=== PATIENT | female | born 1960 | race Caucasian/White ===

== ENCOUNTER 2017-05-24 07:09 | Day surgery (SDC) | payer BC, MEDICAID ==
[~2017-05-24 07:09] MED LIST: Lactated Ringers 1,000 ML IV SCH; Sodium Chloride 0.9% 10 ML Syringe FLUSH PRN
[2017-05-24] MEDS ORDERED: Midazolam 1 MG/ML 2 ML SDV ONE ×2 (07:16→08:19)
[2017-05-24] MEDS ORDERED: fentaNYL 100 MCG/2 ML SDV ONE ×2 (07:16→08:19)
[2017-05-24] MEDS ORDERED: Propofol 200 MG/20 ML SDV ONE ×3 (07:17→08:53)
[2017-05-24] MEDS ORDERED: Lidocaine 2% 5 ML SDV ONE (08:19)
--- NOTE | 2017-05-24 08:28 | PCM.PN ---
- General Info Date of Service: 05/24/17 - Review of Systems Systems Review Comment:: 56-year-old female here for right carpal tunnel release. She is medically stable to proceed today with no significant change in her health status since her recent history and physical which is reviewed today. I have discussed the proposed operative procedure with the patient again. The site is confirmed with the patient had marked. She agrees to proceed today accepting risks. - Patient Data Vitals - most recent: Last Vital Signs Temp 97.7 F 05/24/17 07:21 Pulse 65 05/24/17 07:46 Resp 16 05/24/17 07:21 BP 103/77 05/24/17 07:46 Pulse Ox 93 L 05/24/17 07:21 Weight - most recent: 85.275 kg Med Orders - Current: Current Medications Lactated Ringer's (Ringers, Lactated) 1,000 mls @ 125 mls/hr IV ASDIRECTED CHEVY Last Admin: 05/24/17 07:43 Dose: 125 mls/hr Sodium Chloride (Saline Flush) 10 ml FLUSH ASDIRECTED PRN PRN Reason: Keep Vein Open Last Admin: 05/24/17 07:44 Dose: 10 ml Discontinued Medications Fentanyl (Sublimaze) Confirm Administered Dose 100 mcg .ROUTE .STK-MED ONE Stop: 05/24/17 07:17 Midazolam HCl (Versed 1 Mg/Ml) Confirm Administered Dose 4 mg .ROUTE .STK-MED ONE Stop: 05/24/17 07:17 Propofol (Diprivan 20 Ml) Confirm Administered Dose 200 mg .ROUTE .STK-MED ONE Stop: 05/24/17 07:18 - Problem List Review Problem List Initiated/Reviewed/Updated: Yes - My Orders Last 24 Hours: My Active Orders 05/24/17 07:00 Patient Status [ADT] Routine Peripheral IV Care [RC] . DIRECTED Verify Patient Consent Obtain [RC] ASDIRECTED Lactated Ringers [Ringers, Lactated] 1,000 ml IV ASDIRECTED Sodium Chloride 0.9% [Saline Flush] 10 ml FLUSH ASDIRECTED PRN Peripheral IV Insertion Adult [OM.PC] Routine - Assessment Assessment:: Right carpal tunnel syndrome - Plan Plan:: Right carpal tunnel release
[2017-05-24] MEDS ORDERED: Bupivacaine 0.25%/EPINEPHrine 1:200,000 30 ML SDV INFILT ONE (08:44)
--- NOTE | 2017-05-24 09:19 | PCM.OPNOTE ---
- General Post-Op/Procedure Note Date of Surgery/Procedure: 05/24/17 Operative Procedure(s): Right carpal tunnel release Findings: Thickened right transverse carpal ligament causing compression of underlying median nerve Pre Op Diagnosis: Right carpal tunnel syndrome Post-Op Diagnosis: Same Anesthesia Technique: Regional block Primary Surgeon: Mark Tavarez Pathology: none Output, Urine Amount: 0 EBL in mLs: 5 Complications: None Condition: Good Free Text/Narrative:: Intake & Output 05/23/17 05/24/17 05/24/17 22:59 06:59 14:59 Intake Total 900 Balance 900
--- NOTE | 2017-05-24 11:23 | OR ---
Date of Procedure: 05/24/2017 PREOPERATIVE DIAGNOSIS: Right carpal tunnel syndrome. POSTOPERATIVE DIAGNOSIS: Right carpal tunnel syndrome. OPERATION PERFORMED: Right carpal tunnel release. INDICATIONS FOR SURGERY: This 56-year-old female, who has been having increasing symptoms of numbness and tingling in her right hand. The diagnosis of right carpal tunnel syndrome has been confirmed and her symptoms are not responding to conservative management, so she comes for surgical carpal tunnel release. FINDINGS: The right transverse carpal ligament is thickened causing pressure on the underlying median nerve. The nerve has some mild bruising, but is otherwise satisfactory. PROCEDURE IN DETAIL: The patient was taken to the operating room. She was given IV regional anesthesia of the right hand and arm which was then sterilely prepped with Betadine and draped. A longitudinally oriented curvilinear incision was made along the palmar surface of the right wrist and dissection proceeded down onto the right transverse carpal ligament, which was then incised over and parallel to the course of the underlying median nerve. The ligament was completely divided in this area as are any potentially constricting fibrous bands proximally and distally. In this manner, the nerve was completely released at this level. Great care was used to avoid any injury to the underlying nerve or its branches. After the nerve had been released and with no evidence of any complication, the wound was irrigated and closed. The skin was approximated with interrupted 4-0 Prolene in a mattress technique. Antibiotic ointment and sterile dressing was placed. A bulky dressing held in position with an Daniel bandage was applied. The tourniquet was released and the patient then taken from the operating room in satisfactory condition. ESTIMATED BLOOD LOSS: 5 mL. COMPLICATIONS: None. PROGNOSIS: Good. ALLEGRA Tavarez MD /[id number] MTDPhilip
[2017-05-24 15:05] VITALS: BP 101/67
== END 2017-05-24 10:30 | disposition home or self-care (01) ==
LOC: LL.SDS 07:09
PROVIDERS: ATTEND Surgery
DX: G56.01 Carpal tunnel syndrome, right upper limb (principal); I10 Essential (primary) hypertension; E78.5 Hyperlipidemia, unspecified; Z79.899 Other long term (current) drug therapy; Z98.51 Tubal ligation status; Z98.890 Other specified postprocedural states; F17.210 Nicotine dependence, cigarettes, uncomplicated
CPT/HCPCS: 64721; J2250; J2704; J3010; J7050; J7120

== ENCOUNTER → 2019-10-09 | Outpatient (CLI) | payer BC | LOC: LL.MAM 13:52 | PROVIDERS: ATTEND Physician Assistant | DX: Z12.31 Encounter for screening mammogram for malignant neoplasm of breast (principal) | CPT/HCPCS: 77063; 77067 ==